=== PATIENT | male | born 1990 | race Caucasian/White ===

== ENCOUNTER → 2016-06-24 | Outpatient (CLI) | payer OTHER ==
[2015-11-20 07:12] VITALS: BP 148/94
[~2016-06-24] MED LIST: CEPH-264 PO; SULF1TAB24 PO
[2016-06-25 07:32] LABS: ALBUMIN 4.2 g/dL (3.4-5.0); ALBUMIN/GLOBULIN RATIO 1.2 (1.0-1.7); CALCIUM 9.3 mg/dL (8.5-10.1); CREATININE 0.9 mg/dL (0.7-1.3); GFR 102.8; POTASSIUM 3.7 mmol/L (3.5-5.1); TOTAL BILIRUBIN 0.7 mg/dL (0.2-1.0); TOTAL PROTEIN 7.8 g/dL (6.4-8.2)
[2016-06-26 03:16] LABS: HEMOGLOBIN A1C 8.4 % (4.8-5.6)
== END | disposition home or self-care (01) ==
LOC: LAB 19:15
PROVIDERS: ATTEND Internal Medicine Endocrinology, Diabetes & Metabolism
DX: E10.65 Type 1 diabetes mellitus with hyperglycemia (principal); E78.5 Hyperlipidemia, unspecified
CPT/HCPCS: 36415; 80053; 83036

== ENCOUNTER 2016-09-28 07:18 | Emergency (ER) | payer OTHER ==
[2016-09-28 07:30] VITALS: BP 136/81
[2016-09-28] MEDS ORDERED: ACETAMINOPHEN 500 MG TABLET PO ONE (08:03)
[2016-09-28 08:16] LABS: MONONUCLEOSIS PATIENT NEGATIVE (NEGATIVE)
[2016-09-28] MEDS: ACETAMINOPHEN 500 MG TABLET PO ONE (08:29)
[2016-09-28] MEDS ORDERED: AZIT250T PO (08:34)
--- NOTE | 2016-09-28 08:36 | PHYS DOC ---
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 Patient states that for the past 4-5 days he's had a worsening sore throat. He' s had fever chills and sweats with body aches, throat pain is so great that it limits him to soft foods and liquids due to discomfort. He denies any difficulty with swallowing just discomfort. No neck stiffness no airway compromise or rash. Ofas-oxi-vliqewt medications are not helping. Timing/Duration: last week Severity: severe Location: throat Prearrival Treatment: over the counter meds Modifying Factors: worse with coughing Associated Symptoms: fever, poor solids intake, sore throat Allergies: Coded Allergies: No Known Drug Allergies (Unverified , 07/04/15) Past Medical History Medical History: diabetes Surgical History: noncontributory Social History Smoker: non-smoker Alcohol: none Drugs: none Constitutional: see HPI Ears: denies dizziness, denies pain, denies tinnitus Nose: denies clots, denies congestion, denies epistaxis Throat: see HPI, denies neck stiffness Respiratory: cough, denies shortness of breath Cardiovascular: denies chest pain, denies palpitations Gastrointestinal: denies diarrhea, denies nausea, denies vomiting Musculoskeletal: see HPI, denies back pain, denies joint swelling, denies neck pain Neurological: headache, denies numbness, denies paresthesia Physical Exam General Appearance: WD/WN, no apparent distress Eyes: bilateral eye normal inspection, bilateral eye PERRL, bilateral eye EOMI Nose: normal inspection Mouth/Throat: other (pharynx is beefy red no exudate airway is patent) Neck: supple, trachea midline, lymphadenopathy (R), lymphadenopathy (L) Cardiovascular/Respiratory: normal breath sounds, no respiratory distress Neurologic/Psychiatric: 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 Rest, no strenuous activity. Aggressive hydration with Gatorade or water. [id number] Tylenol, ibuprofen, diphenhydramine, and analgesic throat sprays as needed. Prescription: Z-Tom (start this medication tomorrow as you received the first day's dose in the emergency department). Follow-up with your doctor on Tuesday if not better. Return to the ED with new or changing symptoms. BONIFACIO HART DO Sep 28, 2016 08:36
[2016-09-28] MEDS ORDERED: AZITHROMYCIN 500 MG VIAL. IV ONE (08:38)
[2016-09-28] MEDS: AZITHROMYCIN 250 MG TABLET. PO ONE (08:43)
[2016-09-28] MEDS: LIDO:MAALOX 1:1 20 ML SINGLE DOSE PO ONE (08:48)
== END 2016-09-28 08:50 | disposition home or self-care (01) ==
LOC: ER 07:18
DX: J02.9 Acute pharyngitis, unspecified (principal); M79.1 Myalgia; E11.9 Type 2 diabetes mellitus without complications
CPT/HCPCS: 86308; 87070; 87880; 99284; J0456

== ENCOUNTER 2016-11-11 20:57 | Emergency (ER) | payer OTHER ==
[~2016-11-11] VITALS: Ht 177.8 cm; Wt 88.0 kg
[~2016-11-11 20:57] MED LIST changes: +AZIT250T PO
[2016-11-11] MEDS ORDERED: IV NORMAL SALINE 1,000ML 1,000 ML IV ONE (21:30)
--- NOTE | 2016-11-11 21:38 | ED.ADGEN ---
Past History Past Medical History: Anxiety, Diabetes Past Surgical History: Tonsillectomy Alcohol Use: Occasionally Drug Use: None Adult General HPI HPI Patient is a 25-year-old man, with history of diabetes mellitus, who presents the emergency department with a complaint of blood in his stool. Patient states that over the past several months he is intermittently noticed dark reddish brown soft stools, alternates delay with some bright red blood. He states he thought that he may have an internal hemorrhoid. Patient states that this morning he first noted this stool that was darker than usual, from which dark blood staining in the bowl. He denies any bright red blood. He noted two subsequent soft stools of the same dark red color since that time. States he is feeling more tired than usual today, denies any weakness, any chest pain, shortness breath, nausea vomiting, abdominal pain. Denies any weight loss, any night sweats, or any other symptoms or changes. 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 Patient has not previously been evaluated for blood in his stool. Review of Systems Review of Systems Constitutional: Denies fever or chills [] Eyes: Denies change in visual acuity, redness, or eye pain [] HENT: Denies nasal congestion or sore throat [] Respiratory: Denies cough or shortness of breath [] Cardiovascular: No additional information not addressed in HPI [] GI: Denies abdominal pain, nausea, vomiting, soft dark red stools 3 episodes today. : Denies dysuria or hematuria [] Musculoskeletal: Denies back pain or joint pain [] Integument: Denies rash or skin lesions [] Neurologic: Denies headache, focal weakness or sensory changes [] Endocrine: Denies polyuria or polydipsia [] Current Medications Current Medications Current Medications Medications (Trade) Dose Ordered Sig/Lai Start Time Stop Time Status Last Admin Dose Admin Info (Do NOT chart on this entry -- for MONITORING) 1 each PRN DAILY PRN 11/11/16 22:30 11/12/16 00:48 DC Iohexol (Omnipaque 300 Mg/ml) 75 ml 1X ONCE 11/11/16 23:00 11/11/16 23:01 DC 11/11/16 23:07 75 ML Sodium Chloride 1,000 ml @ 1,000 mls/hr 1X ONCE 11/11/16 21:30 11/11/16 22:29 DC 11/11/16 21:30 1,000 MLS/HR Allergies Allergies Allergies Coded Allergies Type Severity Reaction Last Updated Verified No Known Drug Allergies 07/04/15 No Physical Exam Physical Exam Constitutional: Well developed, well nourished, no acute distress, non-toxic appearance. [] HENT: Normocephalic, atraumatic, bilateral external ears normal, oropharynx moist, no oral exudates, nose normal. [] Eyes: PERRLA, EOMI, conjunctiva normal, no discharge. [] Neck: Normal range of motion, no tenderness, supple, no stridor. [] Cardiovascular:Heart rate regular rhythm, no murmur , S1, S2, no rubs or gallops.[] Lungs & Thorax: Bilateral breath sounds clear to auscultation, no wheezing, rhonchi, rales. No chest wall crepitus or tenderness. [] Abdomen: Bowel sounds normal, soft, no tenderness, no rebound, rigidity, no guarding, no masses, no pulsatile masses. [] Skin: Warm, dry, no erythema, no rash. [] Back: No tenderness, no CVA tenderness. [] Extremities: No tenderness, no cyanosis, no clubbing, ROM intact, no edema. [] Neurologic: Alert and oriented X 3, normal motor function, normal sensory function, no focal deficits noted. [] Psychologic: Affect normal, judgement normal, mood normal. [] Rectal examination: Patient with a small nonthrombosed hemorrhoid noted at the 12 o'clock position, rectal examination reveals a small amount of reddish brown discharge, no gross stool in vault, nontender examination. No masses palpated. Current Patient Data Vital Signs Vital Signs Date Time Temp Pulse Resp B/P (MAP) Pulse Ox O2 Delivery O2 Flow Rate FiO2 11/12/16 00:00 81 20 132/55 (80) 97 11/11/16 20:58 97.9 Room Air Lab Results Laboratory Tests Test 11/11/16 21:11 11/11/16 21:23 Stool Occult Blood Negative (NEG) White Blood Count 8.3 x10^3/uL (4.0-11.0) Red Blood Count 5.20 x10^6/uL (4.30-5.70) Hemoglobin 15.7 g/dL (13.0-17.5) Hematocrit 44.7 % (39.0-53.0) Mean Corpuscular Volume 86 fL (79-100) Mean Corpuscular Hemoglobin 30 pg (25-35) Mean Corpuscular Hemoglobin Concent 35 g/dL (31-37) Red Cell Distribution Width 13.2 % (11.5-14.5) Platelet Count 193 x10^3/uL (140-400) Neutrophils (%) (Auto) 58 % (31-73) Lymphocytes (%) (Auto) 31 % (24-48) Monocytes (%) (Auto) 6 % (0-9) Eosinophils (%) (Auto) 3 % (0-3) Basophils (%) (Auto) 1 % (0-3) Neutrophils # (Auto) 4.9 x10^3uL (1.8-7.7) Lymphocytes # (Auto) 2.6 x10^3/uL (1.0-4.8) Monocytes # (Auto) 0.5 x10^3/uL (0.0-1.1) Eosinophils # (Auto) 0.3 x10^3/uL (0.0-0.7) Basophils # (Auto) 0.1 x10^3/uL (0.0-0.2) Sodium Level 141 mmol/L (136-145) Potassium Level 3.8 mmol/L (3.5-5.1) Chloride Level 107 mmol/L (98-107) Carbon Dioxide Level 28 mmol/L (21-32) Anion Gap 6 (6-14) Blood Urea Nitrogen 14 mg/dL (8-26) Creatinine 1.0 mg/dL (0.7-1.3) Estimated GFR (Cockcroft-Gault) 91.0 BUN/Creatinine Ratio 14 (6-20) Glucose Level 162 mg/dL (70-99) H Lactic Acid Level 0.8 mmol/L (0.4-2.0) Calcium Level 9.2 mg/dL (8.5-10.1) Total Bilirubin 0.7 mg/dL (0.2-1.0) Aspartate Amino Transferase (AST) 17 U/L (15-37) Alanine Aminotransferase (ALT) 30 U/L (16-63) Alkaline Phosphatase 81 U/L (46-116) Total Protein 7.3 g/dL (6.4-8.2) Albumin 3.9 g/dL (3.4-5.0) Albumin/Globulin Ratio 1.1 (1.0-1.7) EKG EKG ECG: Rhythm strip: Heart rate 70 beats are minute, sinus rhythm, no ectopy.[] Radiology/Procedures Radiology/Procedures [][address] [address] IMAGING REPORT Signed PATIENT: TURNER JIMENEZ ACCOUNT: [id number] : 1990 LOCATION: ER AGE: 25 SEX: M EXAM STATUS: REG ER ORD. PHYSICIAN: IQRA ELIAS DO REASON: GI bleeding PROCEDURE: CT ABD PELV W/ IV CONTRST ONLY INDICATION: BLOOD IN STOOL, NO SURGICAL HX TO ABDOMEN, HX HEMORRHOIDS, 75 ML OMNI 300 COMPARISON: None. TECHNIQUE: Axial CT images were obtained through the abdomen and pelvis with intravenous contrast. One or more of the following individualized dose reduction techniques were utilized for this examination: 1. Automated exposure control; 2. Adjustment of the mA and/or kV according to patient size; 3. Use of iterative reconstruction technique. FINDINGS: Chest Base: Partially imaged without gross abnormality. Vessels: No abdominal aortic aneurysm. Liver/Biliary: No intrahepatic biliary duct dilation. Pancreas: No peripancreatic edema. Spleen: Normal. Kidneys/Adrenal: 1 cm low-attenuation lesion left kidney. Prominent extrarenal pelvis without definite radiopaque obstructive ureter stone. Bladder: No definite adjacent inflammation. GI: No free air. No bowel dilation to suggest obstruction. The appendix does not appear grossly inflamed. Moderate fat-containing umbilical hernia. IMPRESSION: 1. No evidence of bowel obstruction. There is no peripancreatic inflammation. 2. Mildly prominent extrarenal pelvis bilaterally without radiopaque obstructive ureter stone. 3. Low-attenuation lesion left kidney given the patient's age this is most likely benign from causes such as cyst but incompletely evaluated on this exam. If more complete characterization is desired ultrasound could further evaluate. Electronically signed by: Gwendolyn Barnett MD (11/11/2016 11:31 PM) [id number] DICTATED AND SIGNED BY: GWENDOLYN BARNETT MD DATE: 11/11/16 [id number] CC: IQRA ELIAS DO; CHUY ROGERS ~ Course & Med Decision Making Course & Med Decision Making Pertinent Labs and Imaging studies reviewed. (See chart for details) Patient noted to have a trace amount of dark reddish stool on rectal examination , with a single external hemorrhoid identified is nonthrombosed. No bina blood , no tenderness. Laboratory studies obtained, reveal hemoglobin of 15.7, without any concerning findings. Patient's Hemoccult was interpreted as negative by the lab, although only a small sample was obtained, and patient's examination and history concerned that this would be a false negative. Patient did receive CT of the abdomen and pelvis with IV contrast that did not reveal any abnormalities of the bowel. I did discuss these findings with patient, he is resting comfortable and has had no further bowel movements in the ED. As he is asymptomatic, and we have not identified any concerning findings during his evaluation, he would like to be discharged home, we did discuss concerning symptoms that prompt return importance of follow-up. Patient states that his significant other has called a local GI physician, with plan to have in follow- up promptly for additional evaluation, he feels confident he can do so in a reasonable period of time. Patient also instructed to follow-up with his primary care provider for outpatient evaluation of a possible kidney cysts. Patient was given copies of this information provided his primary care provider. Patient voiced understanding and agreement with this plan as stated, will return to the ED if any New or concerning symptoms develop, to follow-up with GI and with his primary care provider. Discharged home in stable condition with plan, precautions and instructions as above. Final Impression Final Impression [] Problems: Dragon Disclaimer Dragon Disclaimer This electronic medical record was generated, in whole or in part, using a voice recognition dictation system. Departure: Impression: Primary Impression: Dark red stool Disposition: HOME, SELF-CARE Condition: STABLE IQRA ELIAS DO Nov 11, 2016 21:38
[2016-11-11 21:46] LABS: BASO # 0.1 x10^3/uL (0.0-0.2); BASO % 1 % (0-3); EOS # 0.3 x10^3/uL (0.0-0.7); EOS % 3 % (0-3); HEMATOCRIT 44.7 % (39.0-53.0); HEMOGLOBIN 15.7 g/dL (13.0-17.5); LYMPH # 2.6 x10^3/uL (1.0-4.8); LYMPH % 31 % (24-48); MEAN CORPUSCULAR HEMOGLOBIN 30 pg (25-35); MEAN CORPUSCULAR HGB CONC 35 g/dL (31-37); MEAN CORPUSCULAR VOLUME 86 fL (79-100); MONO # 0.5 x10^3/uL (0.0-1.1); MONO % 6 % (0-9); NEUT # 4.9 x10^3uL (1.8-7.7); NEUT % 58 % (31-73); PLATELET COUNT 193 x10^3/uL (140-400); RED CELL DISTRIBUTION WIDTH 13.2 % (11.5-14.5); WHITE BLOOD COUNT 8.3 x10^3/uL (4.0-11.0)
[2016-11-11 21:58] LABS: ALBUMIN 3.9 g/dL (3.4-5.0); ALBUMIN/GLOBULIN RATIO 1.1 (1.0-1.7); CALCIUM 9.2 mg/dL (8.5-10.1); POTASSIUM 3.8 mmol/L (3.5-5.1); TOTAL BILIRUBIN 0.7 mg/dL (0.2-1.0); TOTAL PROTEIN 7.3 g/dL (6.4-8.2)
[2016-11-11 22:07] LABS: FECAL OB PT NEGATIVE (NEG)
[2016-11-11] MEDS ORDERED: CONTRAST GIVEN MC PRN (22:30)
[2016-11-11] MEDS ORDERED: IOHEXOL 300 MG/ML 75 ML VIAL. IV ONE (23:00)
--- NOTE | 2016-11-11 23:34 | RAD ---
INDICATION: BLOOD IN STOOL, NO SURGICAL HX TO ABDOMEN, HX HEMORRHOIDS, 75 ML OMNI 300 COMPARISON: None. TECHNIQUE: Axial CT images were obtained through the abdomen and pelvis with intravenous contrast. One or more of the following individualized dose reduction techniques were utilized for this examination: 1. Automated exposure control; 2. Adjustment of the mA and/or kV according to patient size; 3. Use of iterative reconstruction technique. FINDINGS: Chest Base: Partially imaged without gross abnormality. Vessels: No abdominal aortic aneurysm. Liver/Biliary: No intrahepatic biliary duct dilation. Pancreas: No peripancreatic edema. Spleen: Normal. Kidneys/Adrenal: 1 cm low-attenuation lesion left kidney. Prominent extrarenal pelvis without definite radiopaque obstructive ureter stone. Bladder: No definite adjacent inflammation. GI: No free air. No bowel dilation to suggest obstruction. The appendix does not appear grossly inflamed. Moderate fat-containing umbilical hernia. IMPRESSION: 1. No evidence of bowel obstruction. There is no peripancreatic inflammation. 2. Mildly prominent extrarenal pelvis bilaterally without radiopaque obstructive ureter stone. 3. Low-attenuation lesion left kidney given the patient's age this is most likely benign from causes such as cyst but incompletely evaluated on this exam. If more complete characterization is desired ultrasound could further evaluate. Electronically signed by: Yadiel Chua MD (11/11/2016 11:31 PM) [id number]
[2016-11-12] VITALS: BP 132/55
== END 2016-11-12 00:15 | disposition home or self-care (01) ==
LOC: ER 20:57
DX: K92.1 Melena (principal); E11.9 Type 2 diabetes mellitus without complications; F41.9 Anxiety disorder, unspecified
CPT/HCPCS: 36415; 74177; 80053; 82274; 83605; 85025; 96360; 99285; Q9967; J7030

== ENCOUNTER → 2016-11-12 | Outpatient (CLI) | payer OTHER ==
[2016-11-12] VITALS: BP 132/55
[2016-11-13 02:07] LABS: HEMOGLOBIN A1C 8.6 % (4.8-5.6)
== END | disposition home or self-care (01) ==
LOC: LAB 09:18
PROVIDERS: ATTEND Internal Medicine Endocrinology, Diabetes & Metabolism
DX: E10.65 Type 1 diabetes mellitus with hyperglycemia (principal); E78.5 Hyperlipidemia, unspecified
CPT/HCPCS: 36415; 83036

== ENCOUNTER → 2017-03-25 | Outpatient (CLI) | payer OTHER ==
[2017-03-25 18:18] LABS: ALBUMIN 3.8 g/dL (3.4-5.0); ALBUMIN/GLOBULIN RATIO 1.1 (1.0-1.7); CALCIUM 9.2 mg/dL (8.5-10.1); CREATININE 0.9 mg/dL (0.7-1.3); POTASSIUM 3.8 mmol/L (3.5-5.1); TOTAL BILIRUBIN 0.4 mg/dL (0.2-1.0); TOTAL PROTEIN 7.3 g/dL (6.4-8.2)
[2017-03-26 07:13] LABS: MICRO CREAT RATIO <11.5 mg/g creat (0.0-30.0); MICROALB RD UR <12.0 ug/mL (Not Estab.)
[2017-03-26 11:06] LABS: THYROID STIM HORMONE (TSH) 3.716 uIU/mL (0.358-3.740)
== END | disposition home or self-care (01) ==
LOC: LAB 17:05
PROVIDERS: ATTEND Internal Medicine Endocrinology, Diabetes & Metabolism
DX: E10.65 Type 1 diabetes mellitus with hyperglycemia (principal); E78.5 Hyperlipidemia, unspecified
CPT/HCPCS: 36415; 80053; 80061; 82043; 82570; 83036; 84443

== ENCOUNTER 2017-07-20 08:17 | Emergency (ER) | payer OTHER ==
[~2017-07-20] VITALS: Ht 177.8 cm; Wt 102.1 kg
--- NOTE | 2017-07-20 09:15 | PHYS DOC ---
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 He has a closed wound on his right finger. No other abrasions lacerations of the skin. Skin is intact. Source is unknown at this time. Patient has had 3 immunizations to hepatitis B , and believes he has had titer testing for hepatitis which proved immunity. He denies any other exposures. No needlestick injuries. Review of systems is negative for chest pain shortness of breath abdominal pain nausea vomiting. All other review of systems is negative unless otherwise noted in history of present illness. ED course: 26-year-old male presenting the emergency department today after a blood exposure with an unknown Hep or HIV status source patient. I counseled the patient on risks and benefits of HIV prophylaxis until source patient can be verified on HIV status. The exposure is low risk but not 0. Patient desires not to initiate antiretroviral therapy until source patients HIV status is identified. I also discussed the case with our employee fluid exposure nurse who will follow up with the patient. CBC and complete metabolic panel obtained which shows hyperglycemia but normal kidney and liver function tests. Patient signed form of refusal of HIV prophylaxis until HIV status of source is identified. The patient will follow-up with employee health in one to 2 days for further evaluation treatment and care. The patient was instructed to return to the emergency department if he has any difficulty getting in to employee health or any worsening conditions or any concerns. [id number] discharge instructions and return precautions given. Patient is comfortable with plan. Review of Systems Review of Systems SEE ABOVE. Allergies Allergies Allergies Coded Allergies Type Severity Reaction Last Updated Verified No Known Drug Allergies 07/04/15 No Physical Exam Physical Exam SEE ABOVE Constitutional: Well developed, well nourished, no acute distress, non-toxic appearance. [] HENT: Normocephalic, atraumatic, bilateral external ears normal, oropharynx moist, no oral exudates, nose normal. [] Eyes: PERRLA, EOMI, conjunctiva normal, no discharge. [] Neck: Normal range of motion, no tenderness, supple, no stridor. [] Cardiovascular:Heart rate regular rhythm, no murmur [] Lungs & Thorax: Bilateral breath sounds clear to auscultation [] Abdomen: Bowel sounds normal, soft, no tenderness, no masses, no pulsatile masses. [] Skin: Warm, dry, no erythema, no rash. [] Back: No tenderness, no CVA tenderness. [] Extremities: No tenderness, no cyanosis, no clubbing, ROM intact, no edema. [] there is a closed healing <1cm wound on the right hand. No open lesions of the exposed skin. Neurologic: Alert and oriented X 3, normal motor function, normal sensory function, no focal deficits noted. [] Psychologic: Affect normal, judgement normal, mood normal. [] EKG EKG [] Radiology/Procedures Radiology/Procedures [] Course & Med Decision Making Course & Med Decision Making Pertinent Labs and Imaging studies reviewed. (See chart for details) [] Dragon Disclaimer Dragon Disclaimer This electronic medical record was generated, in whole or in part, using a voice recognition dictation system. Departure Departure: Impression: Primary Impression: Employee exposure to body fluids Disposition: HOME, SELF-CARE Referrals: CHUY ROGERS (PCP) Patient Instructions: Body Fluid Exposure Additional Instructions: Thank you for allowing us to participate in your care today. Followup with [facility] in 1-2 days. Return to the emergency department you have any new or concerning findings. This should be evaluated by the primary care physician and any necessary consulting services for continued management within a few days after discharge. Return to emergency room if you have any new or concerning symptoms including but not limited to fever, chills, nausea, vomiting, intractable pain, any new rashes, chest pain, shortness of air, uncontrolled bleeding, difficulty breathing, and/or vision loss. If at any time, you are having difficulty getting into your primary care doctor or a specialist, return to the emergency department. LAUREL MCLAUGHLIN MD July 20, 2017 09:15
[2017-07-20 09:46] VITALS: BP 134/86
== END 2017-07-20 09:50 | disposition home or self-care (01) ==
LOC: ER 08:17
DX: Z77.21 Contact with and (suspected) exposure to potentially hazardous body fluids (principal); F41.9 Anxiety disorder, unspecified; E11.65 Type 2 diabetes mellitus with hyperglycemia
CPT/HCPCS: 99281

== ENCOUNTER → 2017-12-03 | Outpatient (CLI) | payer OTHER ==
[2017-12-03 07:57] LABS: ALBUMIN/GLOBULIN RATIO 1.1 (1.0-1.7); CREATININE 0.8 mg/dL (0.7-1.3); GFR 116.9; POTASSIUM 3.4 mmol/L (3.5-5.1); TOTAL BILIRUBIN 0.7 mg/dL (0.2-1.0); TOTAL PROTEIN 7.6 g/dL (6.4-8.2)
== END | disposition home or self-care (01) ==
LOC: LAB 07:27
PROVIDERS: ATTEND Internal Medicine Endocrinology, Diabetes & Metabolism
DX: E10.65 Type 1 diabetes mellitus with hyperglycemia (principal); E78.5 Hyperlipidemia, unspecified; I10 Essential (primary) hypertension
CPT/HCPCS: 36415; 80053; 83036

== ENCOUNTER → 2018-01-02 | Outpatient (CLI) | payer OTHER ==
[2018-01-02 10:00] LABS: ALBUMIN 3.8 g/dL (3.4-5.0); ALBUMIN/GLOBULIN RATIO 1.1 (1.0-1.7); CALCIUM 8.9 mg/dL (8.5-10.1); CREATININE 0.8 mg/dL (0.7-1.3); POTASSIUM 4.3 mmol/L (3.5-5.1); TOTAL BILIRUBIN 0.8 mg/dL (0.2-1.0); TOTAL PROTEIN 7.2 g/dL (6.4-8.2)
[2018-01-02 10:12] LABS: BACTERIA,URINE 0 /HPF (0-FEW); BILIRUBIN,URINE NEG (NEG); CLARITY,URINE CLEAR; COLOR,URINE YELLOW; GLUCOSE,URINE 250 mg/dL (NEG); NITRITE,URINE NEG (NEG); RBC,URINE 0 /HPF (0-2); SQUAMOUS EPITHELIAL CELL,UR FEW /LPF; UROBILINOGEN,URINE 0.2 mg/dL (0.2 mg/dL); WBC,URINE 0 /HPF (0-4)
[2018-01-02 14:15] LABS: THYROID STIM HORMONE (TSH) 4.242 uIU/mL (0.358-3.740)
[2018-01-02 19:09] LABS: MICRO CREAT RATIO 206.6 mg/g creat (0.0-30.0); MICROALB RD UR 328.3 ug/mL (Not Estab.)
[2018-01-02 23:07] LABS: HEMOGLOBIN A1C 7.2 % (4.8-5.6)
== END | disposition home or self-care (01) ==
LOC: LAB 08:50
PROVIDERS: ATTEND Neuromusculoskeletal Medicine & OMM
DX: Z00.01 Encounter for general adult medical examination with abnormal findings (principal); E11.9 Type 2 diabetes mellitus without complications; I10 Essential (primary) hypertension; R63.5 Abnormal weight gain
CPT/HCPCS: 36415; 80053; 80061; 81001; 82043; 82570; 83036; 84443

== ENCOUNTER → 2018-03-11 | Outpatient (CLI) | payer OTHER ==
[2018-03-11 08:03] LABS: ALBUMIN 3.9 g/dL (3.4-5.0); ALBUMIN/GLOBULIN RATIO 1.1 (1.0-1.7); CALCIUM 8.8 mg/dL (8.5-10.1); GFR 89.6; POTASSIUM 3.4 mmol/L (3.5-5.1); TOTAL BILIRUBIN 0.5 mg/dL (0.2-1.0); TOTAL PROTEIN 7.5 g/dL (6.4-8.2)
[2018-03-12 00:08] LABS: HEMOGLOBIN A1C 7.4 % (4.8-5.6)
== END | disposition home or self-care (01) ==
LOC: LAB 07:19
PROVIDERS: ATTEND Internal Medicine Endocrinology, Diabetes & Metabolism
DX: E10.65 Type 1 diabetes mellitus with hyperglycemia (principal); E78.5 Hyperlipidemia, unspecified; I10 Essential (primary) hypertension
CPT/HCPCS: 36415; 80053; 83036

== ENCOUNTER → 2018-07-14 | Outpatient (CLI) | payer OTHER ==
[2018-07-15 06:40] LABS: ALBUMIN 4.3 g/dL (3.4-5.0); TOTAL PROTEIN 8.2 g/dL (6.4-8.2)
[2018-07-15 06:41] LABS: ALBUMIN/GLOBULIN RATIO 1.1 (1.0-1.7); CALCIUM 9.5 mg/dL (8.5-10.1); CREATININE 0.9 mg/dL (0.7-1.3); GFR 101.2; POTASSIUM 3.4 mmol/L (3.5-5.1); TOTAL BILIRUBIN 0.8 mg/dL (0.2-1.0)
[2018-07-15 11:18] LABS: THYROID STIM HORMONE (TSH) 4.144 uIU/mL (0.358-3.740)
[2018-07-15 12:07] LABS: HEMOGLOBIN A1C 7.8 % (4.8-5.6)
[2018-07-15 21:06] LABS: MICRO CREAT RATIO 4.6 mg/g creat (0.0-30.0); MICROALB RD UR 6.5 ug/mL (Not Estab.)
== END | disposition home or self-care (01) ==
LOC: LAB 18:23
PROVIDERS: ATTEND Internal Medicine Endocrinology, Diabetes & Metabolism
DX: E10.65 Type 1 diabetes mellitus with hyperglycemia (principal); I10 Essential (primary) hypertension; E78.5 Hyperlipidemia, unspecified
CPT/HCPCS: 36415; 80053; 80061; 82043; 82570; 83036; 84443

== ENCOUNTER → 2018-08-02 | Outpatient (CLI) | payer OTHER | END | disposition home or self-care (01) | LOC: PMG 08:00 | PROVIDERS: ATTEND Physician Assistant Medical | DX: L03.011 Cellulitis of right finger (principal) | CPT/HCPCS: 87070 ==

== ENCOUNTER → 2019-03-14 | Outpatient (CLI) | payer OTHER ==
[2019-03-14 14:42] LABS: ALBUMIN 3.7 g/dL (3.4-5.0); ALBUMIN/GLOBULIN RATIO 1.1 (1.0-1.7); CALCIUM 8.6 mg/dL (8.5-10.1); CREATININE 0.7 mg/dL (0.7-1.3); GFR 134.3; POTASSIUM 3.8 mmol/L (3.5-5.1)
[2019-03-15 12:34] LABS: THYROID STIM HORMONE (TSH) 2.149 uIU/mL (0.358-3.740)
== END | disposition home or self-care (01) ==
LOC: LAB 13:53
PROVIDERS: ATTEND Internal Medicine Endocrinology, Diabetes & Metabolism
DX: E10.65 Type 1 diabetes mellitus with hyperglycemia (principal); I10 Essential (primary) hypertension; E78.5 Hyperlipidemia, unspecified; E03.9 Hypothyroidism, unspecified
CPT/HCPCS: 36415; 80053; 80061; 83036; 84443

== ENCOUNTER → 2019-04-17 | Outpatient (CLI) | payer OTHER ==
--- NOTE | 2019-04-17 17:32 | RAD ---
TESTICULAR/SCROTUM History: Right testicular pain. Right inguinal pain. Comparison: None. Technique: Multiple grayscale, color flow Doppler and Doppler spectral analysis images of the scrotum are obtained. Findings: Right testicle measures 4.9 x 2.8 x 2.1 cm. A few scattered microcalcifications. The right epididymis is unremarkable. Left testicle measures 3.5 x 2.9 x 2.0 cm. Left testicle demonstrates normal parenchymal echogenicity. The left epididymis is unremarkable. Minimal bilateral hydroceles. No varicocele. No scrotal hyperemia or swelling. No evidence of inguinal hernia. Doppler imaging demonstrates normal flow to both testicles, without evidence of torsion. IMPRESSION: 1. No evidence of inguinal hernia or testicular torsion. 2. Right testicular microlithiasis. Electronically signed by: Chuck Jovel DO (04/17/2019 5:29 PM) [id number]
== END | disposition home or self-care (01) ==
LOC: US 15:21
PROVIDERS: ATTEND Physician Assistant Medical
DX: N50.89 Other specified disorders of the male genital organs (principal); N43.3 Hydrocele, unspecified; N50.811 Right testicular pain
CPT/HCPCS: 76870

== ENCOUNTER → 2019-06-10 | Outpatient (CLI) | payer OTHER | END | disposition home or self-care (01) | LOC: LAB 06:55 | PROVIDERS: ATTEND Internal Medicine Cardiovascular Disease | DX: Z20.828 Contact with and (suspected) exposure to other viral communicable diseases (principal) | CPT/HCPCS: 87635 ==

== ENCOUNTER → 2019-06-27 | Outpatient (CLI) | payer OTHER | LOC: LAB 07:11 | PROVIDERS: ATTEND Obstetrics & Gynecology Reproductive Endocrinology | DX: Z11.59 Encounter for screening for other viral diseases (principal); Z11.3 Encounter for screening for infections with a predominantly sexual mode of transmission | CPT/HCPCS: 36415; 86592; 86703; 86704; 86803; 87340; 87491; 87591 ==

== ENCOUNTER → 2019-09-13 | Outpatient (CLI) | payer OTHER ==
[2019-09-13 19:41] LABS: ALBUMIN 3.9 g/dL (3.4-5.0); ALBUMIN/GLOBULIN RATIO 1.1 (1.0-1.7); CALCIUM 8.8 mg/dL (8.5-10.1); CREATININE 0.9 mg/dL (0.7-1.3); GFR 100.5; POTASSIUM 3.7 mmol/L (3.5-5.1); TOTAL BILIRUBIN 0.5 mg/dL (0.2-1.0); TOTAL PROTEIN 7.4 g/dL (6.4-8.2)
[2019-09-14 18:07] LABS: MICROALB RD UR 7.2 ug/mL (Not Estab.)
[2019-09-15 00:07] LABS: HEMOGLOBIN A1C 7.5 % (4.8-5.6)
== END | disposition home or self-care (01) ==
LOC: LAB 18:31
PROVIDERS: ATTEND Internal Medicine Endocrinology, Diabetes & Metabolism
DX: E10.65 Type 1 diabetes mellitus with hyperglycemia (principal)
CPT/HCPCS: 80053; 82043; 82570; 83036

== ENCOUNTER → 2019-09-13 | Outpatient (CLI) | payer OTHER | END | disposition home or self-care (01) | LOC: LAB 06:47 | PROVIDERS: ATTEND Internal Medicine Cardiovascular Disease | DX: Z20.828 Contact with and (suspected) exposure to other viral communicable diseases (principal) | CPT/HCPCS: C9803; U0003; 36415 ==

== ENCOUNTER → 2019-09-19 | Outpatient (CLI) | payer OTHER | END | disposition home or self-care (01) | LOC: LAB 14:09 | PROVIDERS: ATTEND Internal Medicine Cardiovascular Disease | DX: Z20.828 Contact with and (suspected) exposure to other viral communicable diseases (principal) | CPT/HCPCS: C9803; U0003; 36415 ==

== ENCOUNTER → 2019-09-27 | Outpatient (CLI) | payer OTHER | END | disposition home or self-care (01) | LOC: LAB 06:07 | PROVIDERS: ATTEND Internal Medicine Cardiovascular Disease | DX: Z20.828 Contact with and (suspected) exposure to other viral communicable diseases (principal) | CPT/HCPCS: C9803; U0003; 36415 ==

== ENCOUNTER → 2019-10-31 | Outpatient (CLI) | payer OTHER | END | disposition home or self-care (01) | LOC: LAB 06:18 → EEVIPCON 06:18 | PROVIDERS: ATTEND Internal Medicine Cardiovascular Disease | DX: Z20.828 Contact with and (suspected) exposure to other viral communicable diseases (principal) | CPT/HCPCS: U0003-CS ==

== ENCOUNTER → 2020-01-11 | Outpatient (CLI) | payer OTHER | LOC: LAB 13:18 | PROVIDERS: ATTEND Internal Medicine Cardiovascular Disease | DX: Z20.828 Contact with and (suspected) exposure to other viral communicable diseases (principal) | CPT/HCPCS: U0003 ==

== ENCOUNTER → 2020-02-03 | Outpatient (CLI) | payer OTHER | LOC: LAB 02:30 | PROVIDERS: ATTEND Internal Medicine Cardiovascular Disease | DX: Z20.828 Contact with and (suspected) exposure to other viral communicable diseases (principal) | CPT/HCPCS: U0003 ==

== ENCOUNTER → 2020-04-13 | Outpatient (CLI) | payer OTHER ==
[2020-04-13 09:05] LABS: ALBUMIN 4.3 g/dL (3.4-5.0); ALBUMIN/GLOBULIN RATIO 1.1 (1.0-1.7); GFR 88.3; POTASSIUM 3.5 mmol/L (3.5-5.1); TOTAL BILIRUBIN 0.8 mg/dL (0.2-1.0); TOTAL PROTEIN 8.1 g/dL (6.4-8.2)
[2020-04-13 10:34] LABS: FREE T4 0.95 ng/dL (0.76-1.46); THYROID STIM HORMONE (TSH) 5.389 uIU/mL (0.358-3.740)
[2020-04-14 02:06] LABS: HEMOGLOBIN A1C 7.6 % (4.8-5.6)
[2020-04-14 10:37] LABS: MICROALB RD UR 12.9 ug/mL (Not Estab.)
== END ==
LOC: LAB 07:30
PROVIDERS: ATTEND Internal Medicine Endocrinology, Diabetes & Metabolism
DX: I10 Essential (primary) hypertension (principal); E10.65 Type 1 diabetes mellitus with hyperglycemia; E78.5 Hyperlipidemia, unspecified; E03.9 Hypothyroidism, unspecified
CPT/HCPCS: 36415; 80053; 80061; 82043; 82570; 83036; 84439; 84443

== ENCOUNTER → 2020-09-17 | Outpatient (CLI) | payer OTHER ==
[2020-09-17 07:55] LABS: ALBUMIN 4.1 g/dL (3.4-5.0); ALBUMIN/GLOBULIN RATIO 1.3 (1.0-1.7); CALCIUM 8.7 mg/dL (8.5-10.1); CREATININE 0.9 mg/dL (0.7-1.3); GFR 99.8; POTASSIUM 4.1 mmol/L (3.5-5.1); TOTAL BILIRUBIN 0.5 mg/dL (0.2-1.0); TOTAL PROTEIN 7.3 g/dL (6.4-8.2)
[2020-09-17 14:53] LABS: FREE T4 0.83 ng/dL (0.76-1.46); THYROID STIM HORMONE (TSH) 3.046 uIU/mL (0.358-3.740)
[2020-09-17 23:06] LABS: HEMOGLOBIN A1C 7.8 % (4.8-5.6)
== END ==
LOC: LAB 07:20
PROVIDERS: ATTEND Internal Medicine Endocrinology, Diabetes & Metabolism
DX: I10 Essential (primary) hypertension (principal); E78.5 Hyperlipidemia, unspecified; E10.65 Type 1 diabetes mellitus with hyperglycemia; E03.9 Hypothyroidism, unspecified
CPT/HCPCS: 36415; 80053; 80061; 83036; 84439; 84443

== ENCOUNTER → 2020-09-26 | Outpatient (CLI) | payer OTHER | LOC: LAB 07:20 | PROVIDERS: ATTEND Internal Medicine Cardiovascular Disease | DX: Z20.822 Contact with and (suspected) exposure to COVID-19 (principal) | CPT/HCPCS: U0003; U0005 ==

== ENCOUNTER → 2020-10-03 | Outpatient (CLI) | payer OTHER | LOC: LAB 06:52 | PROVIDERS: ATTEND Internal Medicine Cardiovascular Disease | DX: Z20.822 Contact with and (suspected) exposure to COVID-19 (principal) | CPT/HCPCS: U0003 ==

== ENCOUNTER → 2020-10-09 | Outpatient (CLI) | payer OTHER | LOC: LAB 07:08 | PROVIDERS: ATTEND Internal Medicine Cardiovascular Disease | DX: Z20.822 Contact with and (suspected) exposure to COVID-19 (principal) | CPT/HCPCS: U0003 ==

== ENCOUNTER → 2020-10-22 | Outpatient (CLI) | payer OTHER | LOC: LAB 06:45 | PROVIDERS: ATTEND Internal Medicine Cardiovascular Disease | DX: Z20.822 Contact with and (suspected) exposure to COVID-19 (principal) | CPT/HCPCS: U0003 ==

== ENCOUNTER → 2020-10-31 | Outpatient (CLI) | payer OTHER | LOC: LAB 05:30 | PROVIDERS: ATTEND Internal Medicine Cardiovascular Disease | DX: Z20.822 Contact with and (suspected) exposure to COVID-19 (principal) | CPT/HCPCS: C9803; U0003 ==

== ENCOUNTER → 2020-11-06 | Outpatient (CLI) | payer OTHER | LOC: LAB 09:37 | PROVIDERS: ATTEND Internal Medicine Cardiovascular Disease | DX: Z20.822 Contact with and (suspected) exposure to COVID-19 (principal) | CPT/HCPCS: U0003 ==

== ENCOUNTER → 2020-11-12 | Outpatient (CLI) | payer OTHER | LOC: LAB 06:33 | PROVIDERS: ATTEND Internal Medicine Cardiovascular Disease | DX: Z20.822 Contact with and (suspected) exposure to COVID-19 (principal) | CPT/HCPCS: U0003 ==

== ENCOUNTER → 2020-11-21 | Outpatient (CLI) | payer OTHER | LOC: LAB 07:00 | PROVIDERS: ATTEND Internal Medicine Cardiovascular Disease | DX: Z20.822 Contact with and (suspected) exposure to COVID-19 (principal) | CPT/HCPCS: C9803; U0003 ==

== ENCOUNTER → 2020-12-13 | Outpatient (CLI) | payer OTHER | LOC: LAB 06:20 | PROVIDERS: ATTEND Internal Medicine Cardiovascular Disease | DX: Z20.822 Contact with and (suspected) exposure to COVID-19 (principal) | CPT/HCPCS: C9803; U0003 ==

== ENCOUNTER → 2020-12-18 | Outpatient (CLI) | payer OTHER | LOC: LAB 07:28 | PROVIDERS: ATTEND Internal Medicine Cardiovascular Disease | DX: Z20.822 Contact with and (suspected) exposure to COVID-19 (principal) | CPT/HCPCS: U0003 ==

== ENCOUNTER → 2020-12-26 | Outpatient (CLI) | payer OTHER | LOC: LAB 13:10 | PROVIDERS: ATTEND Internal Medicine Cardiovascular Disease | DX: Z20.822 Contact with and (suspected) exposure to COVID-19 (principal) | CPT/HCPCS: C9803; U0003 ==

== ENCOUNTER → 2020-12-31 | Outpatient (CLI) | payer OTHER | LOC: LAB 09:56 | PROVIDERS: ATTEND Internal Medicine Cardiovascular Disease | DX: Z20.822 Contact with and (suspected) exposure to COVID-19 (principal) | CPT/HCPCS: U0003 ==

== ENCOUNTER → 2021-01-09 | Outpatient (CLI) | payer OTHER | LOC: LAB 01-07 10:24 | PROVIDERS: ATTEND Internal Medicine Cardiovascular Disease | DX: Z20.822 Contact with and (suspected) exposure to COVID-19 (principal) | CPT/HCPCS: U0003 ==

== ENCOUNTER → 2021-01-15 | Outpatient (CLI) | payer OTHER | LOC: LAB 01-14 13:59 | PROVIDERS: ATTEND Internal Medicine Cardiovascular Disease | DX: Z20.822 Contact with and (suspected) exposure to COVID-19 (principal) | CPT/HCPCS: U0003 ==

== ENCOUNTER → 2021-01-23 | Outpatient (CLI) | payer OTHER | LOC: LAB 06:00 | PROVIDERS: ATTEND Internal Medicine Cardiovascular Disease | DX: Z20.822 Contact with and (suspected) exposure to COVID-19 (principal) | CPT/HCPCS: C9803; U0003 ==

== ENCOUNTER → 2021-02-03 | Outpatient (CLI) | payer OTHER | LOC: LAB 15:40 | PROVIDERS: ATTEND Internal Medicine Cardiovascular Disease | DX: Z20.822 Contact with and (suspected) exposure to COVID-19 (principal) | CPT/HCPCS: U0003 ==

== ENCOUNTER → 2021-02-11 | Outpatient (CLI) | payer OTHER | LOC: LAB 02-12 04:45 | PROVIDERS: ATTEND Internal Medicine Cardiovascular Disease | DX: Z20.822 Contact with and (suspected) exposure to COVID-19 (principal) | CPT/HCPCS: C9803; U0003 ==

== ENCOUNTER → 2021-02-19 | Outpatient (CLI) | payer OTHER | LOC: LAB 06:20 | PROVIDERS: ATTEND Internal Medicine Cardiovascular Disease | DX: Z20.822 Contact with and (suspected) exposure to COVID-19 (principal) | CPT/HCPCS: C9803; U0003 ==

== ENCOUNTER → 2021-02-25 | Outpatient (CLI) | payer OTHER | LOC: LAB 05:45 | PROVIDERS: ATTEND Internal Medicine Cardiovascular Disease | DX: Z20.822 Contact with and (suspected) exposure to COVID-19 (principal) | CPT/HCPCS: C9803; U0003 ==

== ENCOUNTER → 2021-03-04 | Outpatient (CLI) | payer OTHER | LOC: LAB 07:39 | PROVIDERS: ATTEND Internal Medicine Cardiovascular Disease | DX: Z20.822 Contact with and (suspected) exposure to COVID-19 (principal) | CPT/HCPCS: U0003 ==

== ENCOUNTER → 2021-03-11 | Outpatient (CLI) | payer OTHER | LOC: LAB 14:42 | PROVIDERS: ATTEND Internal Medicine Cardiovascular Disease | DX: Z20.822 Contact with and (suspected) exposure to COVID-19 (principal) | CPT/HCPCS: U0003 ==

== ENCOUNTER → 2021-03-12 | Outpatient (CLI) | payer OTHER ==
[2021-03-12 12:20] LABS: ALBUMIN 4.3 g/dL (3.4-5.0); ALBUMIN/GLOBULIN RATIO 1.4 (1.0-1.7); CALCIUM 8.8 mg/dL (8.5-10.1); CREATININE 0.9 mg/dL (0.7-1.3); GFR 99.1; POTASSIUM 3.4 mmol/L (3.5-5.1); TOTAL BILIRUBIN 0.5 mg/dL (0.2-1.0); TOTAL PROTEIN 7.4 g/dL (6.4-8.2)
[2021-03-12 20:29] LABS: CHOLESTEROL/HDL RATIO 3.6; FREE T4 0.81 ng/dL (0.76-1.46); THYROID STIM HORMONE (TSH) 2.986 uIU/mL (0.358-3.740)
[2021-03-12 22:07] LABS: MICROALB RD UR 6.1 ug/mL (Not Estab.)
[2021-03-12 23:06] LABS: HEMOGLOBIN A1C 8.1 % (4.8-5.6)
== END ==
LOC: LAB 07:41
PROVIDERS: ATTEND Internal Medicine Endocrinology, Diabetes & Metabolism
DX: I10 Essential (primary) hypertension (principal); E10.65 Type 1 diabetes mellitus with hyperglycemia; E78.5 Hyperlipidemia, unspecified; E03.9 Hypothyroidism, unspecified
CPT/HCPCS: 80053; 80061; 82043; 82570; 83036; 84439; 84443

== ENCOUNTER → 2021-03-18 | Outpatient (CLI) | payer OTHER | LOC: LAB 07:07 | PROVIDERS: ATTEND Internal Medicine Cardiovascular Disease | DX: Z20.822 Contact with and (suspected) exposure to COVID-19 (principal) | CPT/HCPCS: U0003 ==

== ENCOUNTER → 2021-03-27 | Outpatient (CLI) | payer OTHER | LOC: LAB 03-25 07:31 | PROVIDERS: ATTEND Internal Medicine Cardiovascular Disease | DX: Z20.822 Contact with and (suspected) exposure to COVID-19 (principal) | CPT/HCPCS: U0003 ==

== ENCOUNTER 2021-05-05 15:52 | Emergency (ER) | payer OTHER ==
[~2021-05-05] VITALS: Ht 177.8 cm; Wt 106.8 kg
--- NOTE | 2021-05-05 16:24 | PHYS DOC ---
Past History Past Medical History: Anxiety, Diabetes (MARIA ISABEL VICKERS APRN) Past Surgical History: Tonsillectomy (MARIA ISABEL VICKERS APRN) Alcohol Use: Occasionally Drug Use: None (MARIA ISABEL VICKERS APRN) General Adult EDM: Chief Complaint: NAUSEA/VOMITING/DIARRHEA HPI: HPI: Patient is a 30-year-old male who presents to the emergency department today for nausea, vomiting, headache that started at 1:00 this morning. Patient reports that he went out to eat around 5:00 yesterday night. He reports that no one ate the same foods as him but no one else got sick. Patient had an at home negative Covid test prior to arrival. Patient is reporting midline upper abdomen/epigastric cramping that he rates 5 out of 10. Patient states that the cramping feels like the pain associated with nausea and vomiting. He reports a "low-grade fever" of 99.6 and 100.1. Patient has a history of type 1 diabetes, hypothyroidism, he is on antihypertensive medications and statin. Patient denies cough, shortness of breath, diarrhea, fever, sick exposures, travel, urinary symptoms, flank pain, loss of taste or smell. Patient is vaccinated for COVID-19. 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 (MARIA ISABEL VICKERS APRN) Review of Systems: Review of Systems: Constitutional: See HPI Respiratory: See HPI GI: See HPI : See HPI Musculoskeletal: See HPI Neurologic: See HPI Endocrine: see HPI (MARIA ISABEL VICKERS APRN) Allergies: Allergies: Allergies Coded Allergies Type Severity Reaction Last Updated Verified No Known Drug Allergies 07/04/15 No (MARIA ISABEL VICKERS APRN) Physical Exam: PE: Constitutional: Well developed, well nourished, no acute distress, non-toxic appearance. [] HENT: Normocephalic, atraumatic, bilateral external ears normal, oropharynx moist, no oral exudates, nose normal. [] Eyes: PERRL, EOMI, conjunctiva normal, no discharge. [] Neck: Normal range of motion, no stridor Cardiovascular:Heart rate regular rhythm, no murmur [] Lungs & Thorax: Bilateral breath sounds clear to auscultation [] Abdomen: Bowel sounds normal, soft, mild epigastric/midline upper abdomen tenderness with palpation, no abdominal guarding, no rigidity, no rebound tenderness, negative murphys sign, no masses, no pulsatile masses. [] Skin: Warm, dry, no erythema, no rash. [] Back: No tenderness, no CVA tenderness. [] Extremities: No tenderness, no cyanosis, no clubbing, ROM intact, no edema. [] Neurologic: Alert and oriented X 3, normal motor function, normal sensory function, no focal deficits noted. [] Psychologic: Affect normal, judgement normal, mood normal. [] (MARIA ISABEL VICKERS APRN) Current Patient Data: Labs: Laboratory Tests Test 05/05/21 16:25 05/05/21 16:28 05/05/21 16:39 Sodium Level 137 mmol/L Potassium Level 4.1 mmol/L Chloride Level 101 mmol/L Carbon Dioxide Level 27 mmol/L Anion Gap 9 Blood Urea Nitrogen 16 mg/dL Creatinine 0.9 mg/dL Estimated GFR (Cockcroft-Gault) 99.1 BUN/Creatinine Ratio 18 Glucose Level 241 mg/dL Calcium Level 8.9 mg/dL Total Bilirubin 1.2 mg/dL Aspartate Amino Transf (AST/SGOT) 34 U/L Alanine Aminotransferase (ALT/SGPT) 61 U/L Alkaline Phosphatase 68 U/L Total Protein 7.4 g/dL Albumin 3.9 g/dL Albumin/Globulin Ratio 1.1 Lipase 53 U/L White Blood Count 9.7 x10^3/uL Red Blood Count 5.60 x10^6/uL Hemoglobin 16.2 g/dL Hematocrit 48.6 % Mean Corpuscular Volume 87 fL Mean Corpuscular Hemoglobin 29 pg Mean Corpuscular Hemoglobin Concent 33 g/dL Red Cell Distribution Width 14.2 % Platelet Count 192 x10^3/uL Neutrophils (%) (Auto) 86 % Lymphocytes (%) (Auto) 8 % Monocytes (%) (Auto) 4 % Eosinophils (%) (Auto) 2 % Basophils (%) (Auto) 0 % Neutrophils # (Auto) 8.4 x10^3uL Lymphocytes # (Auto) 0.7 x10^3/uL Monocytes # (Auto) 0.4 x10^3/uL Eosinophils # (Auto) 0.2 x10^3/uL Basophils # (Auto) 0.0 x10^3/uL Influenza Type A (Rapid) Negative Influenza Type B (Rapid) Negative SARS-CoV-2 Antigen (Rapid) Negative Current Medications Medications (Trade) Dose Ordered Sig/Lai Route PRN Reason Start Time Stop Time Status Last Admin Dose Admin Sodium Chloride 1,000 ml @ 1,000 mls/hr Q1H IV 05/05/21 16:30 05/05/21 17:29 DC 05/05/21 16:37 Ondansetron HCl (Zofran) 4 mg 1X ONCE IVP 05/05/21 16:30 05/05/21 16:31 DC 05/05/21 16:37 Ketorolac Tromethamine (Toradol 15mg Vial) 15 mg 1X ONCE IVP 05/05/21 16:45 05/05/21 16:46 DC 05/05/21 16:37 Vital Signs: Vital Signs Date Time Temp Pulse Resp B/P (MAP) Pulse Ox O2 Delivery O2 Flow Rate FiO2 05/05/21 16:09 99.9 120 18 168/112 (130) 97 Room Air (MARIA ISABEL VICKERS APRN) EKG: EKG: [] (MARIA ISABEL VICKERS APRN) Radiology/Procedures: Radiology/Procedures: [] (MARIA ISABEL VICKERS APRN) Heart Score: C/O Chest Pain: N/A Risk Factors: Risk Factors: DM, Current or recent (<one month) smoker, HTN, HLP, family history of CAD, obesity. Risk Scores: Score 0 - 3: 2.5% MACE over next 6 weeks - Discharge Home Score 4 - 6: 20.3% MACE over next 6 weeks - Admit for Clinical Observation Score 7 - 10: 72.7% MACE over next 6 weeks - Early Invasive Strategies (MARIA ISABEL VICKERS APRN) Course & Med Decision Making: Course & Med Decision Making Pertinent Labs and Imaging studies reviewed. (See chart for details) [] Patient presents to the emergency department for nausea, vomiting, "low-grade fever" and a headache that started this morning at 1 AM. Patient states that he believes he may have food poisoning as he went out to eat at a restaurant at 5 PM prior to symptoms starting. Patient reports epigastric abdominal cramping, he reports that the cramping feels like when you have been vomiting. Work-up in ER consisted of blood work, urinalysis. He was treated in the emergency department with IV fluids and nausea medication. CBC unremarkable. CMP mostly unremarkable, patient's blood sugar is 241, he is advised to monitor this at home and take his medication as directed. Negative Covid influenza testing. Patient was able to tolerate oral intake after treatment in the emergency department. He will be discharged home with nausea medication. Patient's vital signs are stable. I discussed with patient all findings and diagnostic testing as well as the need to follow-up with PCP for further evaluation and treatment or return to the ER if any new or worsening symptoms. Strict return precautions were also discussed at length. Patient voiced understanding and agreement with the plan. Patient is hemodynamically stable at the time of disposition. (MARIA ISABEL VICKERS APRN) Dragon Disclaimer: Dragon Disclaimer: This electronic medical record was generated, in whole or in part, using a voice recognition dictation system. (MARIA ISABEL VICKERS APRN) Departure Departure: Impression: Primary Impression: Nausea & vomiting Qualified Codes: R11.2 - Nausea with vomiting, unspecified Disposition: 01 HOME / SELF CARE / HOMELESS Condition: GOOD Referrals: JOE ROBLEDO (PCP) Patient Instructions: Nausea and Vomiting Additional Instructions: You are seen in the emergency department today for nausea and vomiting. Likely due to your meal vs viral. Your Covid and influenza testing was negative. Your blood sugar was 241 today, make sure that you are monitoring this and take your medications as directed. Increase your fluids. I would stick to a clear liquid diet or bland diet for the next 24 to 48 hours. You can eat/drink soups/broths, Jell-O, Gatorade, bananas, rice, applesauce and toast. Avoid eating any spicy, greasy or fatty foods. You are being discharged home with nausea medication that you can take as needed. Follow-up with your primary care provider within the next 2 days. Return to the emergency department if you develop intractable nausea or vomiting, high fevers refractory to treatment, blood in your stools or vomit, abdominal pain, urinary symptoms or any new or worsening concerns. Scripts Ondansetron (ONDANSETRON ODT) 4 Mg Tab.rapdis 1 TAB PO PRN Q6-8HRS for nausea for 7 Days, #28 TAB 0 Refills Prov: MARIA ISABEL VICKERS APRN 05/05/21 Dragon Disclaimer This chart was dictated in whole or in part using Voice Recognition software in a busy, high-work load, and often noisy Emergency Department environment. It may contain unintended and wholly unrecognized errors or omissions. (NAVYA ARGUETA MD) Dragon Disclaimer This chart was dictated in whole or in part using Voice Recognition software in a busy, high-work load, and often noisy Emergency Department environment. It may contain unintended and wholly unrecognized errors or omissions. (NAVYA ARGUETA MD) Attending Signature Attending Signature I have participated in the care of this patient and I have reviewed and agree with all pertinent clinical information above including history, exam, and recommendations. (NAVYA ARGUETA MD) MARIA ISABEL VICKERS APRN May 05, 2021 16:24 NAVYA ARGUETA MD May 09, 2021 19:52
[2021-05-05] MEDS ORDERED: ONDANSETRON PF 4 MG/2 ML VIAL. IVP ONE (16:30)
[2021-05-05] MEDS ORDERED: IV NORMAL SALINE 1,000ML 1,000 ML IV SCH (16:30)
[2021-05-05] MEDS ORDERED: KETOROLAC 15 MG/ML VIAL. IVP ONE (16:45)
[2021-05-05 16:49] LABS: BASO % 0 % (0-3); EOS # 0.2 x10^3/uL (0.0-0.7); EOS % 2 % (0-3); HEMATOCRIT 48.6 % (39.0-53.0); HEMOGLOBIN 16.2 g/dL (13.0-17.5); LYMPH # 0.7 x10^3/uL (1.0-4.8); LYMPH % 8 % (24-48); MEAN CORPUSCULAR HEMOGLOBIN 29 pg (25-35); MEAN CORPUSCULAR HGB CONC 33 g/dL (31-37); MEAN CORPUSCULAR VOLUME 87 fL (79-100); MONO # 0.4 x10^3/uL (0.0-1.1); MONO % 4 % (0-9); NEUT # 8.4 x10^3uL (1.8-7.7); NEUT % 86 % (31-73); PLATELET COUNT 192 x10^3/uL (140-400); RED CELL DISTRIBUTION WIDTH 14.2 % (11.5-14.5); WHITE BLOOD COUNT 9.7 x10^3/uL (4.0-11.0)
[2021-05-05 16:56] LABS: CALCIUM 8.9 mg/dL (8.5-10.1); CREATININE 0.9 mg/dL (0.7-1.3); GFR 99.1; POTASSIUM 4.1 mmol/L (3.5-5.1)
[2021-05-05 17:04] LABS: ALBUMIN 3.9 g/dL (3.4-5.0); ALBUMIN/GLOBULIN RATIO 1.1 (1.0-1.7); TOTAL BILIRUBIN 1.2 mg/dL (0.2-1.0); TOTAL PROTEIN 7.4 g/dL (6.4-8.2)
[2021-05-05 17:16] LABS: INFLUENZA A PATIENT NEGATIVE (NEGATIVE); INFLUENZA B PATIENT NEGATIVE (NEGATIVE)
[2021-05-05 17:54] VITALS: BP 155/87
[2021-05-05] MEDS ORDERED: ONDA4TAB12 PO (18:11)
[2021-05-05 18:16] LABS: BACTERIA,URINE 0 /HPF (0-FEW); CLARITY,URINE CLEAR; COLOR,URINE YELLOW; GLUCOSE,URINE 500 mg/dL (NEG); NITRITE,URINE NEG (NEG); RBC,URINE 0 /HPF (0-2); SQUAMOUS EPITHELIAL CELL,UR OCC /LPF; UROBILINOGEN,URINE 0.2 mg/dL (0.2 mg/dL)
== END 2021-05-05 18:40 | disposition home or self-care (01) ==
LOC: ER 15:52
DX: R11.2 Nausea with vomiting, unspecified (principal); R51.9 Headache, unspecified; R10.13 Epigastric pain; F41.9 Anxiety disorder, unspecified; E11.9 Type 2 diabetes mellitus without complications; Z20.822 Contact with and (suspected) exposure to COVID-19
CPT/HCPCS: 36415; 80053; 81001; 83690; 85025; 87428; 96361; 96374; 96375; 99284; J1885; J2405; J7030